=== PATIENT | female | born 1950 | race Caucasian/White ===

== ENCOUNTER → 2016-05-13 | Outpatient (CLI) | payer MEDICARE, BC ==
[~2016-05-13] MED LIST: ACCOLATE20 MG PO; ACIPHEX20 MG PO; ASPIRIN PO; ASPIRIN81 M2 PO; ASPIRINEC PO; ASTELIN137 MCG INH; ATORVASTATIN CA80 MG PO; CADUET 10 MG/801 TAB PO; CADUET 5 MG/801 TAB PO; DIOVAN HCT 160/1 TAB PO; FISH OIL 1,0001 CAP PO; FLONASE16 GM; IBUPROFEN PO; LAMICTAL100 MG PO; LEVAQUIN PO; LOPRESSOR PO; LOSARTAN-HCTZ1 EACH PO; NORCO 10-325 TA1 TAB PO; NORVASC10 MG PO; PHENERGAN PO; PRILOSEC20 M1 PO; PROTONIX PO; PROZAC PO; SINEMET PO; SINGULAIR PO; TOPIRAMATE100 MG PO; TOPROL XL PO; ZANAFLEX4 M1 PO
--- NOTE | ~2016-05-13 | MY11 ---
[facility] A Service of [facility] & [facility] RADIOLOGY TEXT RESULTS PATIENT: MARÍA MONTENEGRO LOCATION: [facility] : 50 UNIT #: [id number] AGE: [address]: Barrington Gilman MD SEX: F ORDER DR: [id number] [place] [id number] O MR#: [id number] Acc #: [id number] NAME: MARÍA MONTENEGRO : 1950 SEX: F STUDY DATE/TIME: 05/13/2016 10:21 UNIT: [facility] ROOM: STUDY DESCRIPTION: MY Mammogram Screening Dig Ricardo Attending Physician: Barrington Gilman M.D. Referring Physician: Barrington Gilman M.D. Ordering Physician: Barrington Gilman M.D. Primary Care Physician: Barrington Gilman M.D. MEDICAL IMAGING REPORT This report is preliminary unless electronic signature is present. EXAM Screening mammogram 05/13 INDICATIONS 66-year-old with no personal history but positive family of breast cancer. No current complaints. FINDINGS Routine digital screening views of both breasts were obtained. Study reviewed with an FDA-approved CAD device. Comparison made with 12/21/2010. Breast parenchyma shows scattered fibroglandular densities. No masses are identified. Benign calcifications are present in both breasts and are stable. There are new calcifications extending from the anterior to posterior thirds of the left breast at roughly the 3 o'clock axis. Followup with magnification views and a true lateral view recommended. IMPRESSION 1. Benign right mammogram. 2. New calcifications in the lateral left breast. Additional imaging recommended. Patients over the age of 40 are entered into a reminder system with target due date for the next mammogram. A result letter will also be sent to the patient. BIRADS: 0 Incomplete; Need additional imaging evaluation and/or prior mammograms for comparison. Dictated by... Migue Roberts Jr., M.D. THIS IS AN ELECTRONICALLY VERIFIED REPORT Migue Roberts Jr., M.D. at 05/13/2016 12:31 PM RLK/jessica [facility]. [facility] A Service of [facility] & [facility] RADIOLOGY TEXT RESULTS PATIENT: MARÍA MONTENEGRO LOCATION: [facility] #: [id number] : 50 UNIT #: [id number] AGE: [address]: Barrington Gilman MD SEX: F ORDER DR: TD: 05/13/2016 12:20 JOB #: [id number] MEDICAL IMAGING REPORT
== END | disposition home or self-care (01) ==
LOC: SMAM 09:49
DX: Z12.31 Encounter for screening mammogram for malignant neoplasm of breast (principal); R92.1 Mammographic calcification found on diagnostic imaging of breast; Z80.3 Family history of malignant neoplasm of breast
CPT/HCPCS: G0202

== ENCOUNTER → 2016-05-21 | Outpatient (CLI) | payer MEDICARE, BC ==
--- NOTE | ~2016-05-21 | MY7 ---
[facility] A Service of [facility] & [facility] RADIOLOGY TEXT RESULTS PATIENT: MARÍA MONTENEGRO LOCATION: [facility] : 50 UNIT #: [id number] AGE: [address]: Barrington Gilman MD SEX: F ORDER DR: [id number] [facility] [address] [place], [place] [address] [id number] O MR#: [id number] Acc #: [id number] NAME: MARÍA MONTENEGRO : 1950 SEX: F STUDY DATE/TIME: 05/21/2016 14:54 UNIT: [facility] ROOM: STUDY DESCRIPTION: MY Mammogram Dx Dig Lt Attending Physician: Barrington Gilman M.D. Ordering Physician: Barrington Gilman M.D. Primary Care Physician: Barrington Gilman M.D. MEDICAL IMAGING REPORT This report is preliminary unless electronic signature is present EXAM Left digital diagnostic mammogram 05/21/2016 COMPARISON Screening mammograms dated 05/13/2016 and 12/21/2010 INDICATIONS 66-year-old female with developing left breast microcalcifications. Additonal imaging evaluation was recommend. FINDINGS Spot magnification ML, spot magnification MLO and full field ML views of the left breast were obtained. In the 3 o'clock position of the left breast spanning from anterior to posterior thirds there are multiple clusters of pleomorphic linear branching microcalcifications, spanning approximately 10.9 cm AP x 4.7 cm transverse x as much as 2.3 cm craniocaudal. These are in a segmental distribution. These are highly suspicious for DCIS. IMPRESSION Developing clusters of microcalcifications spanning the 3 o'clock left breast from the posterior to anterior thirds in a segmental distribution. These are quite extensive spanning approximately 10.9 cm AP x 4.7 cm transverse x up to 2.3 cm craniocaudal and are highly suspicious for DCIS. Stereotactic biopsy is recommend for definitive diagnosis. The most suspicious microcalcifications will be chosen for biopsy. The patient also takes baby aspirin daily and was instructed to discontinue her aspirin therapy today in preparation for the biopsy. Our [facility] office has been notified of these findings and recommendations for stereotactic biopsy and will coordinate notification of the patient's physician. [facility] A Service of [facility] RADIOLOGY TEXT RESULTS PATIENT: MARÍA MONTENEGRO LOCATION: [facility] : 50 UNIT #: [id number] AGE: [address]: Barrington Gilman MD SEX: F ORDER DR: Patients over the age of 40 are entered into a reminder system with target due date for the next mammogram. A result letter will also be sent to the patient. BIRADS: 5 - Highly suggestive of malignancy - Appropriate action should be taken Dictated by... Adam Boyce M.D. THIS IS AN ELECTRONICALLY VERIFIED REPORT Adam Boyce M.D. at 05/24/2016 7:37 AM Celeste TD: 05/22/2016 15:44 JOB #: [id number] MEDICAL IMAGING REPORT COPY
== END | disposition home or self-care (01) ==
LOC: CMAM 14:18
DX: R92.8 Other abnormal and inconclusive findings on diagnostic imaging of breast (principal); R92.0 Mammographic microcalcification found on diagnostic imaging of breast
CPT/HCPCS: G0206

== ENCOUNTER → 2016-06-10 | Outpatient (CLI) | payer MEDICARE, BC ==
--- NOTE | ~2016-06-10 | MY22 ---
[facility] A Service of [facility] & [facility] RADIOLOGY TEXT RESULTS PATIENT: MARÍA MONTENEGRO LOCATION: [facility] : 50 UNIT #: [id number] AGE: [address]: Barrington Gilman MD SEX: F ORDER DR: [id number] [facility] [address] [place], [place] [address] [id number] O MR#: [id number] Acc #: [id number] NAME: MARÍA MONTENEGRO. : 1950 SEX: F STUDY DATE/TIME: 06/10/2016 14:07 UNIT: [facility] ROOM: STUDY DESCRIPTION: MY BX Breast 1st Lesion Stereo Attending Physician: Barrington Gilman M.D. Ordering Physician: Barrington Gilman M.D. Primary Care Physician: Barrington Gilman M.D. MEDICAL IMAGING REPORT This report is preliminary unless electronic signature is present REVISED REPORT SEE ADDENDUM EXAM Stereotactic left breast biopsy on 06/10 INDICATIONS Abnormal mammogram showing new suspicious calcifications along the 3 o'clock axis of the left breast. Patient presents for biopsy. PROCEDURE Informed consent was obtained and time-out was performed. The patient reported that she stopped taking her aspirin last week. The patient was placed in craniocaudal compression. Skin was cleaned with a ChloraPrep. Calcifications in the lateral hemisphere of the left breast were localized stereotactically. The skin and deep breast tissues were then anesthetized with 1% lidocaine. Small skin incision was made. The 9-gauge Eviva biopsy needle was advanced into the pre fire position. Pre fire images demonstrated appropriate needle heading. Then, the needle was fired to biopsy position. Post-fire images also demonstrate appropriate needle placement. Then, multiple 9-gauge vacuum-assisted core biopsies were obtained at target depth in a concentric fashion. 1% lidocaine with epinephrine was infused through the needle during the biopsy. Specimen radiographs showed multiple calcifications in the biopsy specimen indicating adequate biopsy. Then, a biopsy marking clip was left in place in the expected location. There is a small amount of post biopsy hematoma in the breast which was asymptomatic. Hemostasis was achieved using compression and a sterile dressing was then applied. No immediate complications. IMPRESSION Successful stereotactic biopsy of calcifications in the left breast. Multiple 9-gauge vacuum-assisted cores were obtained from the 3 o'clock STS. [facility] A Service of [facility] RADIOLOGY TEXT RESULTS PATIENT: MARÍA MONTENEGRO LOCATION: [facility] : 50 UNIT #: [id number] AGE: [address]: Barrington Gilman MD SEX: F ORDER DR: position of the left breast at about the middle third. Specimen radiograph demonstrates multiple calcifications. Marking clip left in place. No immediate complication. Dictated by... Migue Roberts Jr., M.D. THIS IS AN ELECTRONICALLY VERIFIED REPORT Migue Roberts Jr., M.D. at 06/11/2016 9:48 AM Rohit TD: 06/10/2016 18:56 JOB #: [id number] Stereotactic breast biopsy 06/10 ADDENDUM Pathology results have been received. 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 Imaging results and pathology results are concordant. Given the geographic or segmental distribution of the calcifications, if breast conservation therapy is needed, consider MRI for more definitive characterization of the extent of tumor. Surgical and oncologic consultation recommended. Dictated by... Migue Roberts Jr., M.D. THIS IS AN ELECTRONICALLY VERIFIED REPORT Migue Roberts Jr., M.D. at 06/20/2016 12:30 PM Didier TD: 06/19/2016 14:10 JOB #: [id number] CC: Sovera/invision Please Delete MEDICAL IMAGING REPORT Page 1 of 1 COPY
== END | disposition home or self-care (01) ==
LOC: CWCC 12:31
DX: D05.12 Intraductal carcinoma in situ of left breast (principal); R92.1 Mammographic calcification found on diagnostic imaging of breast; N64.1 Fat necrosis of breast
CPT/HCPCS: 88305; 88344; 88360; G0204